=== PATIENT | male | born 1965 | race African-American/Black ===

== ENCOUNTER 2018-04-13 19:26 | Emergency (ER) | payer OTHER ==
[2018-04-13] MEDS ORDERED: Ketorolac Tromethamine 60 MG/2 ML VIAL ONE (20:27)
== END 2018-04-13 20:50 | disposition home or self-care (01) ==
LOC: ERS 19:26
DX: H60.92 Unspecified otitis externa, left ear (principal); E78.5 Hyperlipidemia, unspecified; I10 Essential (primary) hypertension; J45.909 Unspecified asthma, uncomplicated; F41.9 Anxiety disorder, unspecified; F17.210 Nicotine dependence, cigarettes, uncomplicated
CPT/HCPCS: 96372; J1885

== ENCOUNTER 2018-09-10 23:27 | Observation (INO) | payer OTHER ==
[2018-09-11 00:07] LABS: #Basophils 0.2 thou/uL (0.0-0.2); #Eosinphils 0.4 thou/uL (0.0-0.7); #Lymphocytes 3.9 thou/uL (1.20-3.40); #Monocytes 0.8 thou/uL (0.11-0.59); #Neutrophils 6.1 thou/uL (1.40-6.50); %Basophils 1.5 % (0.0-1.0); %Eosinophils 3.6 % (0.0-10.0); %Lymphocytes 34.1 % (21.0-51.0); %Monocytes 7.2 % (0.0-10.0); %Neutrophils 53.5 % (42.0-75.0); Hemoglobin 12.6 g/dL (14.0-18.0); Mean Corpuscular Hemoglobin 29.7 pg (27.0-31.0); Mean Corpuscular Volume 92.7 fL (78.0-98.0); Mean Platelet Volume 7.7 fL (7.4-10.4); Platelet Count 205 thou/uL (130-400); RBC Distribution Width 12.7 % (11.5-14.5); Red Blood Cell (RBC) Count 4.23 mill/uL (4.70-6.10); White Blood Cell (WBC) Count 11.4 thou/uL (4.8-10.8)
[2018-09-11 00:25] LABS: ALT (SGPT) 17 U/L (8-55); AST (SGOT) 16 U/L (5-34); Albumin 3.9 g/dL (3.5-5.0); Alkaline Phosphatase 72 U/L (40-150); Anion Gap 11 mmol/L (10-20); BUN (Urea Nitrogen) 17 mg/dL (8.4-25.7); Bilirubin, Total 0.2 mg/dL (0.2-1.2); Calc. Creatinine Clearance 0 mL/min (70-130); Calcium 8.9 mg/dL (7.8-10.44); Carbon Dioxide 23 mmol/L (22-29); Chloride 109 mmol/L (98-107); Estimated GFR-MDRD 74; Globulin 2.6 g/dL (2.4-3.5); Glucose 89 mg/dL (70-105); Potassium 3.8 mmol/L (3.5-5.1); Protein, Total 6.5 g/dL (6.0-8.3); Sodium 139 mmol/L (136-145)
[2018-09-11] MEDS ORDERED: Ondansetron PF 4 MG/2 ML Vial ONE (01:34)
[2018-09-11] MEDS ORDERED: Acetaminophen 325 MG TAB ONE (01:34)
[2018-09-11 03:27] LABS: Troponin I Less than 0.010 ng/mL (< 0.028)
[2018-09-11 06:38] LABS: Troponin I Less than 0.010 ng/mL (< 0.028)
--- NOTE | 2018-09-11 07:16 | RAD ---
PORTABLE CHEST: History: Chest pain FINDINGS: Lungs are clear. Heart and mediastinum unremarkable. IMPRESSION: No acute findings. POS: [facility]
--- NOTE | 2018-09-11 07:58 | CT ---
PRELIMINARY REPORT/[facility]/EMERGENTY AFTER-HOURS PROCEDURE CT Head Without Contrast EXAM DATE/TIME: 09/11/2018 12:39 AM CLINICAL HISTORY: 53 years old, male; Pain; Headache; Patient HX: Er 22; , Headache; M53 reports to ed C/O constant cp, starting tonight while sitting still. PT reports associated SOB, cough, nausea, SPANGLER (before nitro). TECHNIQUE: Axial computed tomography images of the head/brain without contrast. COMPARISON: No relevant prior studies available. FINDINGS: Brain: Normal. No hemorrhage. No significant white matter disease. No edema. Ventricles: Normal. No ventriculomegaly. Bones/joints: Unremarkable. No acute fracture. Sinuses: There are postoperative changes involving the anterior wall of the right maxillary sinus. Mastoid air cells: Visualized mastoid air cells are unremarkable. No mastoid effusion. Soft tissues: Unremarkable. IMPRESSION: No acute intracranial pathology. Thank you for allowing us to participate in the care of your patient. Dictated and Authenticated by: Charlie Varghese MD 09/11/2018 12:58 AM Central Time ([place] & [place]) FINAL REPORT CT BRAIN WITHOUT CONTRAST: FINDINGS: I agree with the preliminary report provided. No acute intracranial abnormalities are evident. There are post-surgical change involving the anterior wall of the right maxillary sinus. POS: [facility]
[2018-09-11] MEDS ORDERED: Regadenoson 0.4 MG/5 ML SYRINGE ONE (10:05)
[2018-09-11 10:56] VITALS: BMI 27.2
[2018-09-11] MEDS ORDERED: Acetaminophen 325 MG TAB PO PRN (11:37)
--- NOTE | 2018-09-11 18:01 | NM ---
MYOCARDIAL PERFUSION EVALUATION: 09/11/18 INDICATION: Chest pain. RADIOPHARMACEUTICAL: 27.5 millicuries technetium 99m Sestamibi IV for stress and 10.4 millicuries technetium 99m Sestamibi at rest. FINDINGS: No reversible myocardial perfusion defect is evident. There is normal wall motion and thickening. Est imated LVEF is 61%. IMPRESSION: Normal myocardial perfusion evaluation. POS: [facility]
[2018-09-11 18:47] VITALS: BP 125/78; TEMP 97.8
--- NOTE | 2018-09-12 02:40 | HP ---
CHIEF COMPLAINT: Chest pain. HISTORY OF PRESENT ILLNESS: Mr. Blue is a 53-year-old male with past medical history of hypertension, hyperlipidemia who started having pain last night. The patient states of pain in the retrosternal area, nonradiating, sharp in nature, associated with some nausea, but no diaphoresis, no shortness of breath, felt dizzy. The patient received zofran in the ER. The patient was evaluated and found to have normal EKG and being admitted to rule out myocardial infarction. The patient received some Zofran and Tylenol in the ER. PAST MEDICAL HISTORY: 1. Hypertension. 2. History of chronic migraines. 3. History of bronchial asthma. 4. Status post bilateral knee surgeries. CURRENT MEDICATIONS: He is on, 1. Lisinopril 40 mg daily. 2. Metoprolol 25 mg b.i.d. 3. Aspirin 81 mg daily. ALLERGIES: PENICILLIN. FAMILY HISTORY: Nothing contributory. SOCIAL HISTORY: Lives with family. No history of smoking. REVIEW OF SYSTEMS: Unremarkable except the chest pain. PHYSICAL EXAMINATION: GENERAL: The patient is alert, awake, and, oriented x3. VITAL SIGNS: Temperature 98, pulse 80, respirations 20, blood pressure 150/80. HEENT: : Head is normocephalic and atraumatic. Pupils are equal and reactive. Nasopharynx is pale and dry. Hard and soft palate, no lesions. SKIN: Turgor decreased. NECK: Supple. No JVD. LUNGS: Bilateral air entry present. No rales. No rhonchi. HEART: S1 and S2, regular. ABDOMEN: Soft. No distention. No tenderness. Normal bowel sounds present. RECTAL: Deferred. CENTRAL NERVOUS SYSTEM: The patient is alert, awake, and oriented x3. Motor system; power 5/5 in all extremities. Deep tendon reflex 2+ bilaterally. Plantars downgoing. Sensory intact. LABORATORY DATA: CBC shows WBC 11, hemoglobin 12, and platelets 205. Metabolic panel; sodium 139, potassium 3.8, chloride 100, CO2 of 23, BUN 17, creatinine 1.1, glucose 89. Troponin less than 0.01. Chest x-ray is negative. EKG shows normal sinus rhythm. T-wave inversions on leads I and II and aVF and also T-wave inversions in V4 to V6. ASSESSMENT: 1. Chest pain, rule out myocardial infarction. 2. Hypertension. 3. Hyperlipidemia. 4. Abnormal EKG. PLAN: 1. Vital signs q.4 hours. 2. Activities: As tolerated. 3. Allergies, penicillin. 4. Hep-lock. 5. Diet: Cardiac. 6. Continue home medications. 7. Aspirin daily. 8. Tylenol p.r.n. 9. Lexiscan stress test. Job ID: [id number] MTDD
--- NOTE | 2018-09-12 14:53 | DIS ---
DATE OF ADMISSION: 09/11/2018 DATE OF DISCHARGE: 09/11/2018 ADMITTING DIAGNOSES: 1. Chest pain, rule out myocardial infarction. 2. Hypertension. 3. Hyperlipidemia. 4. Abnormal EKG. FINAL DIAGNOSES: 1. Chest pain. No evidence of acute myocardial infarction. Normal cardiac enzymes. 2. Hypertension. 3. Hyperlipidemia. BRIEF SUMMARY OF HOSPITAL COURSE: Mr. Blue is a 53-year-old male with past medical history of hypertension, hyperlipidemia, came with chest pain. The patient was admitted for rule out myocardial infarction. cardiac enzymes were done. second troponin less than 0.01, third one was less than 0.01. The patient underwent a Cardiolite stress test and it came back negative for ischemia. In view of improvement, the patient is being discharged. PHYSICAL EXAMINATION: GENERAL: At the time of discharge, he was stable. VITAL SIGNS: Stable. LUNGS: Clear HEART: Heart sounds regular. ABDOMEN: Soft, nontender. Bowel sounds present. The patient did not have any more chest pain while in hospital. DISCHARGE MEDICATIONS: Include; 1. Aspirin 81 mg daily. 2. Lipitor 80 mg at bedtime. 3. Gabapentin 300 mg bedtime. 4. Lisinopril 40 mg daily. 5. Metoprolol 25 daily. 6. Naproxen p.r.n. 7. Topamax 50 b.i.d. FOLLOWUP: The patient will come for a followup in 2 weeks. Job ID: [id number] MTDD
== END 2018-09-11 19:57 | disposition home or self-care (01) ==
LOC: ERS 23:27 → ERHOLD 09-11 01:18 → 2SW 09-11 10:09
PROVIDERS: ADMIT Internal Medicine; ATTEND Internal Medicine
DX: R07.9 Chest pain, unspecified (principal); I10 Essential (primary) hypertension; E78.5 Hyperlipidemia, unspecified; R94.31 Abnormal electrocardiogram [ECG] [EKG]; Z79.82 Long term (current) use of aspirin; Z79.899 Other long term (current) drug therapy; Z88.0 Allergy status to penicillin
CPT/HCPCS: 36415; 70450; 71045; 78452; 80053; 84484; 85025; 93005; 93017; 96374; A9500; G0378; J2405; J2785

== ENCOUNTER 2018-10-22 14:42 | Observation (INO) | payer OTHER ==
--- NOTE | 2018-10-22 15:12 | RAD ---
XR Chest 1 View Portable History: [Chest pain] Comparison: Radiograph September 10, 2018 Findings: The lungs are clear. No pneumothorax or effusion. Cardiac silhouette and mediastinal contou rs are within normal limits. Impression: No acute intrathoracic abnormality.
[2018-10-22 15:21] LABS: #Basophils 0.1 thou/uL (0.0-0.2); #Eosinphils 0.4 thou/uL (0.0-0.7); #Lymphocytes 4.8 thou/uL (1.20-3.40); #Neutrophils 8.8 thou/uL (1.40-6.50); %Basophils 0.6 % (0.0-1.0); %Eosinophils 2.9 % (0.0-10.0); %Lymphocytes 31.8 % (21.0-51.0); %Monocytes 6.4 % (0.0-10.0); %Neutrophils 58.4 % (42.0-75.0); Hemoglobin 15.4 g/dL (14.0-18.0); Mean Corpuscular HGB CONC 33.8 g/dL (32.0-36.0); Mean Corpuscular Hemoglobin 29.7 pg (27.0-31.0); Mean Corpuscular Volume 87.8 fL (78.0-98.0); Platelet Count 270 thou/uL (130-400); RBC Distribution Width 12.4 % (11.5-14.5); Red Blood Cell (RBC) Count 5.19 mill/uL (4.70-6.10); White Blood Cell (WBC) Count 15.1 thou/uL (4.8-10.8)
[2018-10-22 15:30] LABS: ALT (SGPT) 18 U/L (8-55); AST (SGOT) 16 U/L (5-34); Albumin 4.4 g/dL (3.5-5.0); Alkaline Phosphatase 88 U/L (40-150); Anion Gap 17 mmol/L (10-20); BUN (Urea Nitrogen) 19 mg/dL (8.4-25.7); Bilirubin, Total 0.2 mg/dL (0.2-1.2); CK (CPK) 193 U/L (30-200); Calc. Creatinine Clearance 0 mL/min (70-130); Calcium 10.1 mg/dL (7.8-10.44); Carbon Dioxide 23 mmol/L (22-29); Chloride 102 mmol/L (98-107); Estimated GFR-MDRD 60; Globulin 3.7 g/dL (2.4-3.5); Glucose 117 mg/dL (70-105); Lipase 39 U/L (8-78); Potassium 3.5 mmol/L (3.5-5.1); Protein, Total 8.1 g/dL (6.0-8.3); Sodium 138 mmol/L (136-145)
[2018-10-22] MEDS ORDERED: Aspirin Chewable 81 MG TAB ONE (15:37)
[2018-10-22 15:50] LABS: Platelet Morphology Comment Appears Adequate; RBC Morphology Normal
[2018-10-22 18:21] LABS: Troponin I 0.013 ng/mL (< 0.028)
[2018-10-22] MEDS ORDERED: Ondansetron PF 4 MG/2 ML Vial IVP PRN (18:54)
[2018-10-22] MEDS ORDERED: Ondansetron ODT 4 MG TAB SL PRN (18:54)
[2018-10-22] MEDS ORDERED: Acetaminophen 325 MG TAB PO PRN (18:54)
[2018-10-22 18:59] VITALS: BMI 27.3
[2018-10-23] MEDS ORDERED: Iopamidol 370 76% 100 ML VIAL ONE (10:19)
[2018-10-23] MEDS ORDERED: Communication Order-Pharmacy FS SCH (11:15)
[2018-10-23] MEDS ORDERED: Heparin 10,000 UNITS/1 ML VIAL ONE (13:11)
[2018-10-23] MEDS ORDERED: Verapamil 5 MG/2 ML VIAL ONE (13:11)
[2018-10-23] MEDS ORDERED: Nitroglycerin 100MG/250ML BOT 250 ML ONE (13:12)
[2018-10-23] MEDS ORDERED: Fentanyl 100 MCG/2 ML VIAL ONE (13:50)
[2018-10-23] MEDS ORDERED: Midazolam HCl 2 mg/2 ml Vial ONE (13:50)
[2018-10-23] MEDS ORDERED: Sodium Chloride 0.9% 200 ML IV PRN (14:22)
[2018-10-23] MEDS ORDERED: Sodium Chloride 0.9% 1,000 ML IV SCH (14:30)
--- NOTE | 2018-10-23 15:44 | CON ---
DATE OF CONSULTATION: HISTORY OF PRESENT ILLNESS: The patient is a 53-year-old gentleman, who presents for evaluation of left-sided chest discomfort. The patient was seen initially in 2015 with chest pain. He underwent a cardiac catheterization. He was found to have normal left systolic function with normal coronary arteries. The patient had severe peripheral vascular disease. He was found to have a 70% to 90% proximal in the right iliac artery. The patient has subsequently been on medical therapy. He was readmitted a month ago with chest pain. He underwent a stress test, which revealed an abnormal systolic function with no evidence of significant coronary artery disease. The patient presents once again with recurrent left-sided chest discomfort. He says he has been diaphoretic and this lasted for several hours. The patient denies having any present chest discomfort. PAST MEDICAL HISTORY: Significant for, 1. Peripheral vascular disease. 2. Hypertension. 3. Dyslipidemia. PAST SURGICAL HISTORY: He has had hernia surgery, knee surgery, and appendectomy. SOCIAL HISTORY: He is a former smoker. MEDICATIONS: On admission; 1. Naproxen 500 b.i.d. 2. Metoprolol 50 b.i.d. 3. Gabapentin 300 at bedtime. 4. Lipitor 80 at bedtime. 5. Aspirin 81 daily. 6. Lisinopril/hydrochlorothiazide 2 tablets p.o. b.i.d. REVIEW OF SYSTEMS: Ten-point system, otherwise unremarkable. PHYSICAL EXAMINATION: GENERAL: This is a well-developed gentleman, in no acute distress. VITAL SIGNS: Blood pressure of 119/72. NECK: Showed no jugular venous distention. LUNGS: Clear to auscultation. HEART: Regular rate and rhythm. Normal S1 and S2. No murmurs. ABDOMEN: Nondistended. EXTREMITIES: Show no edema. VASCULAR: Radial pulses are 2+. Femoral pulses are diminished. LABORATORY DATA: His sodium is 138, potassium 3.5, chloride 102, bicarbonate 23, BUN 19, and creatinine is 1.5. Troponin 0.01. White blood cell count 15.1, hemoglobin 15.4, hematocrit 45.6, and platelets 270. IMAGING DATA: EKG revealed normal sinus rhythm with left ventricular hypertrophy. No marked ST-T wave abnormality suggestive of ischemia. IMPRESSION: 1. Unstable angina. 2. History of peripheral vascular disease. 3. Hypertension. 4. Dyslipidemia. 5. Tobacco abuse. This gentleman presents with unstable angina. From a cardiac standpoint, he underwent a recent stress test showing no evidence of ischemia. He will be treated with medication. Further recommendations will follow. PLAN: 1. Admit to telemetry. 2. Treat with subcutaneous Lovenox. 3. Further recommendations to follow. Job ID: [id number]
[2018-10-23] MEDS: Lisinopril/Hydrochlorothiazide 20 mg/12.5 mg Tablet PO SCH (20:22)
[2018-10-23] MEDS: Metoprolol Tartrate 50 MG TAB PO SCH (20:23)
[2018-10-23] MEDS: Acetaminophen/Codeine 30-300mg Tablet PO PRN (20:51)
[2018-10-23] MEDS ORDERED: Topiramate 25 MG TAB PO SCH (21:00)
[2018-10-23] MEDS ORDERED: Gabapentin 300 MG CAP PO SCH (21:00)
[2018-10-23] MEDS ORDERED: Aspirin Chewable 81 MG TAB PO SCH (21:00)
[2018-10-23] MEDS ORDERED: Atorvastatin Calcium 40 MG TAB PO SCH (21:00)
--- NOTE | 2018-10-24 01:13 | HP ---
CHIEF COMPLAINT: Chest pain. HISTORY OF PRESENT ILLNESS: Mr. Blue is a 53-year-old male with past medical history of hypertension, tobacco abuse, hyperlipidemia, came in with a left-sided chest pain started few days ago. The patient had an episode of chest pain 2 days ago in the left side in the retrosternal area, associated with diaphoresis and the pain radiates to the left shoulder. Pain was more like a pressure like, squeezing type and he says it lasted about 2 hours and pain went away. He was seen in the office yesterday and the EKG showed T-wave inversions. Since he had the chest pain, the patient decided to go to the emergency room. The patient was evaluated in the ER and was given aspirin and morphine and admitted for further evaluation. The patient had a recent stress test about a month ago and the stress test was negative for ischemia. The patient also had a coronary angiogram 3 years ago, this was reported as normal coronaries. PAST MEDICAL HISTORY: 1. Hypertension. 2. Hyperlipidemia. 3. Tobacco abuse. 4. Peripheral vascular disease with 70% to 80% stenosis in the right iliac artery, proximal portion. CURRENT MEDICATIONS: The patient is on: 1. Aspirin 81 mg daily. 2. Atorvastatin 80 mg daily. 3. Gabapentin 300 mg at bedtime. 4. Lisinopril/hydrochlorothiazide two tablets b.i.d. 20/12.5. 5. Metoprolol 50 b.i.d. 6. Topamax 75 mg daily. ALLERGIES: PENICILLIN. FAMILY HISTORY: Nothing contributory. SOCIAL HISTORY: The patient lives with family. No history of alcohol or drugs. Smokes one pack a day. REVIEW OF SYSTEMS: CARDIOVASCULAR: Has chest pain and shortness of breath. RESPIRATORY: No fever or cough. GASTROINTESTINAL: No nausea or vomiting. No abdominal pain. CENTRAL NERVOUS SYSTEM: No headaches. No dizziness. PHYSICAL EXAMINATION: GENERAL: The patient is alert, awake, oriented x3. VITAL SIGNS: Temperature 98, pulse 83, respirations 20, blood pressure 120/60. HEENT: Head is normocephalic, atraumatic. Pupils are equal and reactive. Nasopharynx is pale and dry. Hard and soft palate, no lesions. SKIN: Turgor decreased. NECK: Supple. No JVD. LUNGS: Bilateral air entry present. No rales. No rhonchi. HEART: S1 and S2 regular. ABDOMEN: Soft. No distention. No tenderness. Normal bowel sounds. RECTAL: Deferred. CENTRAL NERVOUS SYSTEM: No focal neurologic deficits. LABORATORY DATA: CBC showed WBCs 15, hemoglobin 15, hematocrit 45, platelets 270. Metabolic panel; sodium 138, potassium 3.5, chloride 102, CO2 is 23, BUN 19, creatinine 1.5, glucose 117. Troponin 0.018. Chest x-ray negative. EKG showed normal sinus rhythm with left ventricular hypertrophy. T-wave inversion seen in V4 through V6 and lead I and II. ASSESSMENT: 1. Chest pain, possible anginal, rule out myocardial infarction. 2. Hypertension. 3. Hyperlipidemia. 4. Peripheral vascular disease. PLAN: 1. Vital signs q.4. 2. Activity as tolerated. 3. Allergies, penicillin. 4. Hep-Lock. 5. Aspirin 81 mg daily. 6. Continue home medications. 7. Troponin I q.6 hours x2. 8. Cardiology consult. 9. [place]. Job ID: [id number]
[2018-10-24 08:10] VITALS: TEMP 97.7
[2018-10-24] MEDS: Lisinopril/Hydrochlorothiazide 20 mg/12.5 mg Tablet PO SCH (08:37)
[2018-10-24] MEDS: Metoprolol Tartrate 50 MG TAB PO SCH (08:37)
[2018-10-24] MEDS: Acetaminophen/Codeine 30-300mg Tablet PO PRN (09:39)
[2018-10-24 10:31] VITALS: BP 113/70
--- NOTE | 2018-10-25 09:06 | EKG ---
Test Reason : Blood Pressure : / mmHG Vent. Rate : 097 BPM Atrial Rate : 097 BPM P-R Int : 152 ms QRS Dur : 084 ms QT Int : 362 ms P-R-T Axes : 027 038 181 degrees QTc Int : 459 ms Normal sinus rhythm Possible Left atrial enlargement Left ventricular hypertrophy Abnormal ECG No change from 09/03/2018 Confirmed by DIDI COYLE D.O. ([id number]), society editor BURAK MARSH ([id number] on 10/25/2018 9:05:48 AM Referred By: Confirmed By:DIDI COYLE D.O.
--- NOTE | 2018-10-27 10:26 | DIS ---
DATE OF ADMISSION: 10/22/2018 DATE OF DISCHARGE: 10/24/2018 ADMITTING DIAGNOSES: 1. Chest pain, possible angina, rule out myocardial infarction. 2. Hypertension. 3. Hyperlipidemia. 4. Peripheral vascular disease. FINAL DIAGNOSES: 1. Chest pain. No evidence of acute myocardial infarction. Negative coronary angiogram to normal coronaries. 2. Hypertension. 3. Hyperlipidemia. 4. Peripheral vascular disease. BRIEF SUMMARY OF HOSPITAL COURSE: Mr. Blue is a 53-year-old [place] male, admitted because of chest pain suggestive of angina. The patient did not have any nausea or vomiting. Has some shortness of breath. Serial cardiac enzymes were within normal limits. Cardiology consulted, and the patient was seen by Dr. Carey. He felt the patient has unstable angina and needs coronary angiogram. The patient underwent an angiogram, and it reported as normal coronaries. The patient did not have anymore chest pain. In view of that, the patient is discharged home. PHYSICAL EXAMINATION: GENERAL: At the time of discharge, he is stable. VITAL SIGNS: Stable. LUNGS: Clear. HEART: S1S2 regular ABDOMEN: Soft, nontender. Bowel sounds present. DISCHARGE MEDICATIONS: Include, 1. Gabapentin 300 mg at bedtime. 2. Lipitor 80 mg at bedtime. 3. Aspirin 81 mg daily. 4. Topamax 75 mg daily. 5. Metoprolol 50 b.i.d. 6. Lisinopril/hydrochlorothiazide 20/12.5 one b.i.d. FOLLOWUP: The patient will come for followup in 2 weeks. Job ID: [id number] MTDD
--- NOTE | 2018-10-27 22:26 | EKG ---
Test Reason : Blood Pressure : / mmHG Vent. Rate : 067 BPM Atrial Rate : 067 BPM P-R Int : 172 ms QRS Dur : 084 ms QT Int : 428 ms P-R-T Axes : 033 036 192 degrees QTc Int : 452 ms Normal sinus rhythm Left ventricular hypertrophy with repolarization abnormality Abnormal ECG When compared with ECG of 22-OCT-2018 14:48, (Unconfirmed) No significant change was found Confirmed by Shailesh HCONG ([id number]) on 10/27/2018 10:25:27 PM Referred By: NANNETTE Confirmed By:Shailesh CHONG
== END 2018-10-24 11:32 | disposition home or self-care (01) ==
LOC: ERS 14:42 → 2SW 17:04
PROVIDERS: ADMIT Internal Medicine; ATTEND Internal Medicine
PROC: 4A023N7 Measurement of Cardiac Sampling and Pressure, Left Heart, Percutaneous Approach (ICD-10-PCS; principal; 2018-10-23)
PROC: B2111ZZ Fluoroscopy of Multiple Coronary Arteries using Low Osmolar Contrast (ICD-10-PCS; 2018-10-23)
DX: R07.89 Other chest pain (principal); I10 Essential (primary) hypertension; E78.5 Hyperlipidemia, unspecified; I73.9 Peripheral vascular disease, unspecified; F17.210 Nicotine dependence, cigarettes, uncomplicated; Z79.82 Long term (current) use of aspirin; Z79.899 Other long term (current) drug therapy
CPT/HCPCS: 36415; 71045; 80053; 82550; 83690; 84484; 85025; 93005; 93010; 93458; 94760; 96360; 96361; 99152; C1769; G0378; J1644; J2250; J3010; Q9967

== ENCOUNTER 2019-02-06 22:44 | Emergency (ER) | payer OTHER ==
[2019-02-06] MEDS ORDERED: diphenhydrAMINE 50 MG/ML VIAL ONE (23:25)
[2019-02-06] MEDS ORDERED: Nitroglycerin 0.4 MG TAB 1 EACH ONE (23:25)
[2019-02-06] MEDS ORDERED: Metoclopramide HCl 10 MG/2 ML VIAL ONE (23:25)
--- NOTE | 2019-02-06 23:34 | RAD ---
Chest one view HISTORY: Chest pain. COMPARISON: 10/22/2018. FINDINGS: Cardiac silhouette is magnified by projection. Pulmonary vasculature is unremarkable. Media stinum is midline. No lobar consolidation or evidence of pneumothorax. quality assurance monitor chassis leads overlie the chest. IMPRESSION: No active cardiopulmonary abnormalities are demonstrated.
--- NOTE | 2019-02-06 23:38 | CT ---
CT head noncontrast HISTORY: Headache. Dizziness. COMPARISON: 09/11/2018. FINDINGS: There is no evidence of acute intracranial hemorrhage or infarct. The ventricles appear nor mal in size, shape and position. There is no mass effect or shift of midline structures. Visualized paranasal sinuses remain well aerated. IMPRESSION: No acute intracranial abnormalities are demonstrated.
[2019-02-06 23:53] LABS: Bilirubin Negative (Negative); Blood, Urine Negative (Negative); Clarity Extra Turbid (Clear); Glucose, Urine (Dipstick) Normal (Negative); Leukocyte Negative Leu/uL (Negative); Nitrite Negative (Negative); Protein, Urine (Dipstick) 10 mg/dL (Neg-Trace); Urobilinogen Normal mg/dL (Less than 2)
[2019-02-07 02:24] LABS: #Eosinphils 0.2 thou/uL (0.0-0.7); #Lymphocytes 3.4 thou/uL (1.20-3.40); #Monocytes 1.4 thou/uL (0.11-0.59); #Neutrophils 9.5 thou/uL (1.40-6.50); %Basophils 0.3 % (0.0-1.0); %Eosinophils 1.6 % (0.0-10.0); %Lymphocytes 23.1 % (21.0-51.0); %Monocytes 9.5 % (0.0-10.0); %Neutrophils 65.6 % (42.0-75.0); Hemoglobin 12.2 g/dL (14.0-18.0); Mean Corpuscular HGB CONC 33.5 g/dL (32.0-36.0); Mean Corpuscular Volume 89.6 fL (78.0-98.0); Mean Platelet Volume 8.4 fL (7.4-10.4); Platelet Count 209 thou/uL (130-400); RBC Distribution Width 13.3 % (11.5-14.5); Red Blood Cell (RBC) Count 4.08 mill/uL (4.70-6.10); White Blood Cell (WBC) Count 14.5 thou/uL (4.8-10.8)
[2019-02-07 02:44] LABS: ALT (SGPT) 12 U/L (8-55); AST (SGOT) 13 U/L (5-34); Albumin 3.9 g/dL (3.5-5.0); Alkaline Phosphatase 62 U/L (40-150); Anion Gap 10 mmol/L (10-20); BUN (Urea Nitrogen) 15 mg/dL (8.4-25.7); Bilirubin, Total 0.4 mg/dL (0.2-1.2); Calc. Creatinine Clearance 0 mL/min (70-130); Calcium 9.2 mg/dL (7.8-10.44); Carbon Dioxide 22 mmol/L (22-29); Chloride 110 mmol/L (98-107); Estimated GFR-MDRD 86; Globulin 2.7 g/dL (2.4-3.5); Glucose 113 mg/dL (70-105); Potassium 3.9 mmol/L (3.5-5.1); Protein, Total 6.6 g/dL (6.0-8.3); Sodium 138 mmol/L (136-145)
== END 2019-02-07 04:35 | disposition home or self-care (01) ==
LOC: ERS 22:44
DX: R07.89 Other chest pain (principal); R51 Headache; I10 Essential (primary) hypertension; E78.5 Hyperlipidemia, unspecified; J45.909 Unspecified asthma, uncomplicated; F41.9 Anxiety disorder, unspecified; F17.210 Nicotine dependence, cigarettes, uncomplicated; Z79.899 Other long term (current) drug therapy; Z79.82 Long term (current) use of aspirin
CPT/HCPCS: 36415; 70450; 71045; 80053; 81003; 83690; 83880; 84484; 85025; 93005; 96365; 96375; J1200; J2765

== ENCOUNTER 2019-12-25 20:45 | Emergency (ER) | payer OTHER ==
[2019-12-25] MEDS ORDERED: Ketorolac Tromethamine 30 MG/ML VIAL ONE (21:01)
== END 2019-12-25 21:20 | disposition home or self-care (01) ==
LOC: ERS 20:45
DX: K04.7 Periapical abscess without sinus (principal); K02.9 Dental caries, unspecified; E78.5 Hyperlipidemia, unspecified; I10 Essential (primary) hypertension; J45.909 Unspecified asthma, uncomplicated; F17.210 Nicotine dependence, cigarettes, uncomplicated; F41.9 Anxiety disorder, unspecified
CPT/HCPCS: 96372; 99282; J1885

== ENCOUNTER 2020-01-18 15:40 | Emergency (ER) | payer BC, OTHER ==
[2020-01-19 15:03] LABS: SARS-CoV-2 MS2 Positive; SARS-CoV-2 N Gene Negative; SARS-CoV-2 S Gene Negative; SARS-CoV-2 orf1ab Negative
== END 2020-01-18 15:58 | disposition home or self-care (01) ==
LOC: ERS 15:40
DX: R51 Headache (principal); R19.7 Diarrhea, unspecified; M79.10 Myalgia, unspecified site; Z20.828 Contact with and (suspected) exposure to other viral communicable diseases; F41.9 Anxiety disorder, unspecified; F43.10 Post-traumatic stress disorder, unspecified; F17.210 Nicotine dependence, cigarettes, uncomplicated
CPT/HCPCS: 87635; 99284; U0003

== ENCOUNTER 2024-01-02 11:28 | Outpatient (CLI) | payer OTHER | END 2024-01-02 11:29 | disposition home or self-care (01) | LOC: BICRAD 11:28 | PROVIDERS: ATTEND Preventive Medicine Occupational Medicine | DX: M25.561 Pain in right knee (principal); M25.562 Pain in left knee; M54.2 Cervicalgia; M96.1 Postlaminectomy syndrome, not elsewhere classified; M17.11 Unilateral primary osteoarthritis, right knee; M25.862 Other specified joint disorders, left knee; M46.02 Spinal enthesopathy, cervical region; M25.78 Osteophyte, vertebrae; M47.812 Spondylosis without myelopathy or radiculopathy, cervical region; M48.8X2 Other specified spondylopathies, cervical region; Z98.890 Other specified postprocedural states | CPT/HCPCS: 72040; 72100 ==